=== PATIENT | female | born 1970 | race Caucasian/White ===

== ENCOUNTER 2020-11-06 11:18 | Emergency (ER) | payer MEDICARE ==
[2020-11-06 12:33] LABS: HEMOGLOBIN 15.3 gm/dl (12.3-15.3); RED BLOOD COUNT 4.88 M/UL (4.00-5.10); WHITE BLOOD COUNT 7.2 K/UL (4.5-11.0)
[2020-11-06 12:54] LABS: BUN/CREATININE RATIO 19 (0-10)
[2020-11-06] MEDS ORDERED: ZOFRAN4 MG PO (16:59)
[2020-11-06] MEDS ORDERED: VENTOLIN HFA 66.7 GM INH (16:59)
[2020-11-06] MEDS ORDERED: DOXYCYCLINE HY100 M2 PO (16:59)
[2020-11-06] MEDS ORDERED: MEDROL DOSEPAK 24 MG PO (16:59)
== END 2020-11-06 17:10 | disposition home or self-care (01) ==
LOC: ER1 11:18
PROVIDERS: Physician Assistant
DX: U07.1 COVID-19 (principal); E86.0 Dehydration; M06.9 Rheumatoid arthritis, unspecified; Z90.49 Acquired absence of other specified parts of digestive tract; Z88.0 Allergy status to penicillin
CPT/HCPCS: 36600; 71045; 80053; 81001; 82803; 85025; 99285; J7030; U0002